=== PATIENT | female | born 1970 | race Caucasian/White ===

== ENCOUNTER → 2017-04-15 | Outpatient (CLI) | payer BC ==
--- NOTE | 2017-04-15 13:15 | KCIC ---
EXAM: Right foot, 2 views. HISTORY: Paresthesia. COMPARISON: None. FINDINGS: Frontal and lateral views of the right foot are obtained. There is no fracture, dislocation or subluxation. There is a minimal plantar spur. There is enthesopathy at the Achilles tendon insertion. IMPRESSION: No acute osseous finding. Electronically signed by: Rosita Cm MD (04/15/2017 1:12 PM)
== END | disposition home or self-care (01) ==
LOC: KCIC 12:05
PROVIDERS: ATTEND Nurse Practitioner Family
DX: R20.2 Paresthesia of skin (principal)
CPT/HCPCS: 73620

== ENCOUNTER → 2017-09-06 | Outpatient (CLI) | payer BC ==
--- NOTE | 2017-09-07 08:18 | KCIC ---
EXAM: Lumbar spine MRI without contrast. HISTORY: Neuropathy. TECHNIQUE: Multiplanar, multisequence magnetic resonance imaging of the lumbar spine was performed without contrast. COMPARISON: None. FINDINGS: There is no listhesis. The vertebral bodies are normal in height. There are few vertebral body hemangiomas. No suspicious osseous lesion is seen. The disc spaces are preserved. The conus terminates at L2. There is no significant disc herniation or foraminal or central canal stenosis. IMPRESSION: No evidence of significant foraminal or central canal stenosis. Electronically signed by: Rosita Cm MD (09/07/2017 8:15 AM) [id number]
== END | disposition home or self-care (01) ==
LOC: KCIC MRI 17:45
PROVIDERS: ATTEND Nurse Practitioner Family
DX: G57.91 Unspecified mononeuropathy of right lower limb (principal); G57.92 Unspecified mononeuropathy of left lower limb
CPT/HCPCS: 72148